=== PATIENT | female | born 1950 | race Caucasian/White ===

== ENCOUNTER 2018-01-28 09:54 | Inpatient (IN) ==
[2018-01-22 15:40] LABS: Appearance,Urine CLEAR; Bacteria,Urine 0 /hpf (0); Bilirubin,Urine NEG (NEG); Color,Urine YELLOW; Glucose,Urine (UA) NEGATIVE (NEG); Leukocyte Esterase,Urine 75 /uL (NEG); Mucus,Urine FEW /hpf (0); Protein,Urine NEG (NEG); Specific Gravity,Urine 1.015 (1.000-1.035); Urine Blood NEG mg/dL (<0.03); Urine RBC 1 /hpf (0-1); Urine Squamous Epithelial Cell 1 /hpf (0-4); Urine Transitional Epi Cells < 1 /hpf (0-2); Urine WBC 4 /hpf (0-4); Urobilinogen,Urine NEG (NEG)
[2018-01-22 17:15] LABS: Basophils # (Auto) 0 K/mcL (0.0-0.3); Basophils % (Auto) 0.4 % (0.0-2.0); Eosinophils # (Auto) 0.1 K/mcL (0.0-0.7); Eosinophils % (Auto) 1.1 % (0.0-7.0); Granulocytes % (Auto) 68.2 % (38.0-78.0); Lymphocytes # (Auto) 1.4 K/mcL (1.5-4.8); Lymphocytes % (Auto) 22.8 % (15.5-49.0); Mean Cell Volume 91.7 fL (80.0-100.0); Mean Corpuscular Hemoglobin 30.3 pg (26.0-34.0); Monocytes # (Auto) 0.5 K/mcL (0.1-0.9); Monocytes % (Auto) 7.5 % (1.0-12.0); Platelet Count 184 K/mcL (140-440); RBC 4.73 M/mcL (4.00-5.20); Red Cell Distribution Width 13.6 % (11.5-14.5)
[2018-01-22 18:26] LABS: Blood Urea Nitrogen 15 mg/dl (8-23)
[~2018-01-28 09:54] MED LIST: 0.9 % SODIUM CHLORIDE 9 ML, KETOROLAC 30 MG, ROPIVACAINE HCL/PF 49.5 ML, EPINEPHrine 0.... IJ SCH; CELECOXIB 200 MG CAPSULE PO SCH; PREGABALIN 75 MG CAPSULE PO SCH; ceFAZolin 1 GM VIAL IV SCH; oxyCODONE 10 MG TAB.ER.12H PO SCH
[2018-01-28] MEDS ORDERED: ONDANSETRON 4 MG/2 ML VIAL IV ONE (13:55)
[2018-01-28] MEDS ORDERED: LIDOCAINE HCL/PF 100 MG/5 ML SYRINGE IV ONE (13:55)
[2018-01-28] MEDS ORDERED: DEXAMETHASONE 10 MG/ML VIAL IV ONE (13:55)
[2018-01-28] MEDS ORDERED: PROPOFOL 200 MG/20 ML VIAL IV ONE (13:55)
[2018-01-28] MEDS ORDERED: PHENYLEPHRINE 10 MG/ML VIAL IV ONE (13:55)
[2018-01-28] MEDS ORDERED: GLYCOPYRROLATE 0.2 MG/ML VIAL IV ONE (13:55)
[2018-01-28] MEDS ORDERED: ePHEDrine 50 MG/ML AMPUL IV ONE (13:55)
[2018-01-28] MEDS ORDERED: KETAMINE 100 MG/ML ML IV ONE (13:55)
[2018-01-28] MEDS ORDERED: TRANEXAMIC ACID 1,000 MG/10 ML VIAL IV ONE (13:55)
[2018-01-28] MEDS ORDERED: MIDAZOLAM 2 MG/2 ML VIAL IV ONE (13:55)
[2018-01-28] MEDS ORDERED: METHOCARBAMOL 1,000 MG/10 ML VIAL IV PRN (14:33)
[2018-01-28] MEDS ORDERED: fentaNYL 100 MCG/2 ML VIAL IV PRN (14:33)
[2018-01-28] MEDS ORDERED: BENZOCAINE/MENTHOL 1 LOZENGE PO PRN ×2 (14:33→15:15)
[2018-01-28] MEDS ORDERED: NALOXONE HCL 0.4 MG/ML VIAL IV PRN (14:33)
[2018-01-28] MEDS ORDERED: ACETAMINOPHEN 1,000 MG/100 ML BOTTLE IV ONE (14:33)
[2018-01-28] MEDS ORDERED: ONDANSETRON 4 MG/2 ML VIAL IV PRN ×2 (14:33→15:15)
[2018-01-28] MEDS ORDERED: IPRATROPIUM/ALBUTEROL 3 ML AMPUL.NEB NEB PRN (14:33)
[2018-01-28] MEDS ORDERED: LACTATED RINGERS 250 ML IV PRN (14:33)
[2018-01-28] MEDS ORDERED: MEPERIDINE 25 MG/ML SYRINGE IV PRN (14:33)
[2018-01-28] MEDS ORDERED: FLUMAZENIL 0.1 MG/ML ML IV PRN (14:33)
[2018-01-28] MEDS ORDERED: GENTAMICIN SULFATE 800 MG/20 ML VIAL IR ONE (14:34)
[2018-01-28] MEDS ORDERED: LACTATED RINGERS 1,000 ML IV SCH (14:45)
[2018-01-28] MEDS ORDERED: TRANEXAMIC ACID 1,000 MG/10 ML VIAL IV SCH (15:15)
[2018-01-28] MEDS ORDERED: FLEETS ADULT ENEMA PR PRN (15:15)
[2018-01-28] MEDS ORDERED: POLYETHYLENE GLYCOL 3350 17 GM PACKET PO PRN (15:15)
[2018-01-28] MEDS ORDERED: ONDANSETRON ODT 4 MG TABLET SL PRN (15:15)
[2018-01-28] MEDS ORDERED: METHOCARBAMOL 750 MG TABLET PO PRN (15:15)
[2018-01-28] MEDS ORDERED: BISACODYL 10 MG SUPP.RECT PR PRN (15:15)
[2018-01-28] MEDS ORDERED: MAGNESIUM HYDROXIDE 30 ML ORAL.SUSP PO PRN (15:15)
--- NOTE | 2018-01-28 15:15 | Brief Operative Note ---
Date of procedure: 01/28/18 Pre-op diagnosis: right knee oa Post-op diagnosis: same Procedure: right total knee arthroplasty Grafts/Implants: Yes Anesthesia: GETA, spinal Findings: oa Complications: none Surgeon: Melquiades Hernandez Prenatal Genetic Counselor: Lynne Harris Estimated blood loss (cc): 150 Tourniquet Time (Minutes): 58 Specimens Removed/Pathology: none sent Condition: stable Disposition: PACU
--- NOTE | 2018-01-28 15:31 | Operative Note ---
DATE OF OPERATION: 01/28/2018 PREOPERATIVE DIAGNOSIS: Degenerative joint disease, right knee. POSTOPERATIVE DIAGNOSIS: Degenerative joint disease, right knee. PROCEDURE PERFORMED: Right total knee arthroplasty. SURGEON: Alena Hernandez M.D. ETCHER APPRENTICE PHOTOENGRAVING SURGEON: Lynne Harris PA-C. ANESTHESIA: Spinal with LMA assist. ESTIMATED BLOOD LOSS: 150 mL. COMPLICATIONS: None noted. SPECIMENS REMOVED: None. DRAINS: None. TOURNIQUET TIME: 58 minutes at 300 mmHg. IMPLANTS: DePuy Attune tibial base fixed bearing size 3, cemented; DePuy Attune femoral posterior stabilized size 4 right, cemented; DePuy Attune tibial insert fixed bearing posterior stabilized size 4, 10 mm AOX; DePuy Attune patella medialized dome 35 mm, cemented AOX; DePuy CMW2 bone cement 20 grams x4. INDICATIONS: The patient has had a long-standing history of worsening pain in the knee that has failed conservative treatment. Radiographs have confirmed advanced degenerative joint disease. After a long discussion about treatment options, the patient elected to proceed with a knee arthroplasty. The risks and benefits were discussed with the patient in detail including, but not limited to, the risks of anesthesia, problems with the heart or lungs related to anesthesia, infection, compromise or injury to the nerves and blood vessels, deep venous thrombosis, pulmonary embolism, pneumonia, continued pain after surgery, worsening pain or symptoms after surgery, swelling, loss of motion, instability, leg length discrepancy, and need for repeat surgery. DESCRIPTION OF PROCEDURE: The patient was seen in the pre-anesthesia waiting room where all questions were answered and the correct side and site were identified and marked. The patient was transferred to the operating room and administered the anesthetic and given pre-operative antibiotics. A time-out was then called. The extremity was prepped and draped, exsanguinated, and the tourniquet was inflated to 300 mmHg. A midline skin incision was then made with a standard medial parapatellar arthrotomy. Debridement of the menisci, ACL, and PCL was performed followed by balancing releases in the medial lateral plane. We then established intramedullary access to both the femur and tibia in a standard fashion. The femoral guide lenin was initially placed with the distal femoral guide, pinned into place, and the distal femoral cut was performed and checked with a flat plate. We then turned our attention to the tibia. The intramedullary guide was placed with the proximal tibial cutting block. The block was appropriately positioned off the affected side, varus and valgus was checked with the extra-medullary guide, and the block was pinned into place. The proximal tibial cut was performed and the tibia was prepared for the tibial implant with appropriate rotation. The tibia, femur, and posterior compartment were debrided of osteophytes, loose bodies, and meniscal fragments We then used the gap balancing technique to balance extension with the first two cuts and good balancing was obtained with a 10 millimeter gap block. We turned our attention back to the femur and used the referencing block and implant to size appropriately. Using the gap balancing technique for the flexion space we set our rotation of the femur off the tibial cut. Anesthesia gave the patient 1 gram of Tranexamic Acid via an intravenous route. We placed the 4 in 1 cutting block and made anterior, posterior, and chamfer cuts. Box plasty cuts were then made in a standard fashion for the posterior stabilized prosthesis. We then completed osteophyte release and posterior capsule release from the posterior compartment. Trials were placed and we chose the polyethylene insert thickness that provided the best stability in all planes. With the trials in place, we did a measured resection for a resurfacing patella. We sized the patella and placed the patella trial and performed a lateral facetectomy with the saw and rongeur. Good tracking was obtained. We removed all trials, irrigated and dried all cut surfaces. We cemented the components into place including tibia, femur and patella. We placed a trial liner and held the knee in full extension with the patella compressed while the cement cured. We then removed all excess cement and placed the final polyethylene tibiofemoral component. Irrigation with 3 liters of antibiotic saline was then performed using jet-lavage. We let the tourniquet down and coagulated bleeding vessels. We injected a 100 cubic centimeter volume including Ropivacaine 49.25 cubic centimeters at 5 milligrams per cubic centimeter, Ketorolac 30 milligrams, and Epinephrine 0.5 milligrams into 100 cubic centimeters volume of normal saline. We closed the retinaculum with #2 Stratafix and 0 Vicryl. We closed the subcutaneous tissue and skin in layers out to Dermabond on the skin. A sterile pressure dressing was applied. All needle and sponge counts were correct. The patient was transferred to the recovery room in stable condition. JAMES:jose alfredo Covarrubias: 01/28/2018 15:24:33 Job ID: [id number] Doc ID: [id number] Alena Hernandez MD
--- NOTE | 2018-01-28 16:16 | XRay Report ---
CLINICAL INFORMATION: Postsurgical follow-up TECHNIQUE: AP and crosstable lateral right knee COMPARISON: None. FINDINGS: Status post right total knee arthroplasty. Femoral and tibial complements are in anatomic positions. There is postsurgical intra-articular gas as well as a patellar joint effusion. IMPRESSION: Status post right total knee arthroplasty Interpreted and Authenticated by: Melquiades Abarca 01/28/18
[2018-01-28] MEDS: KETOROLAC 15 MG/ML VIAL IV SCH ×2 (17:42→23:06)
[2018-01-28] MEDS: ASPIRIN 325 MG ENTERIC COATED TABLET PO SCH (20:43)
[2018-01-28] MEDS: DOCUSATE SODIUM 100 MG CAPSULE PO SCH (20:43)
[2018-01-28] MEDS: HYDROcodone/APAP 10/325MG TABLET PO PRN (20:44)
[2018-01-28] MEDS: 0.9 % SODIUM CHLORIDE 10 ML SYRINGE IV SCH (20:44)
[2018-01-28] MEDS: ceFAZolin 1 GM VIAL IV SCH (20:45)
[2018-01-28] MEDS ORDERED: SENNOSIDES 1 TABLET PO SCH (21:00)
[2018-01-28] MEDS: 0.9 % SODIUM CHLORIDE 1,000 ML IV SCH (21:57)
[2018-01-29] MEDS: HYDROcodone/APAP 10/325MG TABLET PO PRN ×2 (04:49→09:26)
[2018-01-29] MEDS: ceFAZolin 1 GM VIAL IV SCH (05:17)
[2018-01-29] MEDS: 0.9 % SODIUM CHLORIDE 10 ML SYRINGE IV SCH (05:17)
[2018-01-29] MEDS: KETOROLAC 15 MG/ML VIAL IV SCH (05:27)
--- NOTE | 2018-01-29 07:02 | Discharge Summary ---
Providers - Providers Patient information: Note initiated : 01/29/18 at 7:00 am Service Date, if different from initiated Date: [] Patient: Diann Chandler 67 y/o F admitted on 01/28/18 for Right Total Knee Arthroplasty. Chief Complaint: [POD #1 s/p right TKA Patient doing well. Ambulating okay. Denies significant pain, numbness, tingling , chest pain, SOB, calf pain. No questions or concerns.] Discharge date: 01/29/18 Hospitalization Hospital course: Patient was brought into the OR yesterday for right TKA which went on without complication. She was admitted overnight for pain control and post surgical observation. She will d/c to home today or tomorrow morning and follow up in clinic in 10-14 days for post op visit. Discharge diagnosis: knee osteoarthritis Exam - Exam Incision healing: Yes Incision draining: No Incision red: No Incision swollen: No Incision inflamed: No Clean and dry: Yes Weight bearing status: as tolerated Range of motion: full ankle/foot. knee 0-5 deg ext/40 deg flex Ortho Discharge - TKA - Patient Instructions Diet: Regular Diet Activity: weight bearing as tolerated Total Knee Protocol: For Total Knee: Start ROM LUIS ENRIQUE with stationary bike or rocking chair. Work on gaining full extension of knee. Posterior dislocation precautions provided. Hip abductor strengthening and gait training instructions provided. Apply Cryocuff as instructed. Dressing Care: May shower in 2 days, Other (dermabond protocol) Additional Dressing Instructions: leave dermabond glue patch in place. May remove gauze and ISAMAR on day 2. Shower over patch, pat dry and replace gauze. - Follow Up Plan Follow Up Appointments: Lynne Harris PA-C [Physician Rf Microwave Engineer] - 02/12/18 11:00 am Disposition: Home, Self-Care Prognosis: Good Rehab Potential: Good I certify that the patient requires SNF services: No Overall status at discharge: patient is progressing back to baseline - Orders For Discharge Prescriptions: Aspirin [Ecotrin] 325 mg PO BID #60 tab.ec HYDROcodone/APAP 10/325MG [Tomball 10-325Mg] 1 - 2 tab PO Q4HP PRN #60 tab PRN Reason: Pain Level 3-6 Additional Discharge Orders: Physical Therapy at Discharge - TKA Location: None Selected Walker Location: None Selected Pending Studies Resuscitation Status Full Code Diet Regular Diet Start Sat 4 1516 Hydrocodone Bitart/Acetaminophen (Tomball 10/325mg) 0 tab PO Q4HP PRN PRN Reason: PAIN LEVEL 3-6 Last Admin: 01/29/18 04:49 Dose: 2 tab Admin: 01/28/18 20:44 Dose: 1 tab Aspirin (Ecotrin) 325 mg PO BID [facility] Last Admin: 01/28/18 20:43 Dose: 325 mg Docusate Sodium (Colace) 100 mg PO BID [facility] Last Admin: 01/28/18 20:43 Dose: 100 mg Sodium Chloride (Sodium Chloride 0.9%) 1,000 mls @ 125 mls/hr IV .Q8H [facility] Last Admin: 01/28/18 21:57 Dose: Admin: 01/28/18 21:57 Dose: Ketorolac Tromethamine (Toradol) 15 mg IV Q6 [facility] Stop: 01/30/18 12:01 Last Admin: 01/29/18 05:27 Dose: 15 mg Admin: 01/28/18 23:06 Dose: 15 mg Admin: 01/28/18 17:42 Dose: 15 mg Senna (Senokot) 2 tab PO HS [facility] Last Admin: 01/28/18 20:43 Dose: 2 tab Sodium Chloride (Saline Flush) 10 ml IV Q8 [facility] Last Admin: 01/29/18 05:17 Dose: 10 ml Admin: 01/28/18 20:44 Dose: Not Given Shift Summary 01/29/18 05:06 Shift Summary by Lexie Ford&Ox4. VSS on RA. Dressing to surgical site to right knee is CDI. Cryo-cuff in place intermittently. Used CPM for 2 hours; up to 50 degrees flexion; tolerated well. Medicated with Tomball 10/325mg x 2 for pain. Patient continues to retain urine. Straight cathed at 2051 for 625ml. Last PVR at 0441 was 493ml. Patient would like to avoid another catheterization if possible. Patient is going to attempt to void again in hopes of emptying bladder. Will update at bedside. Initialized on 01/29/18 05:06 - END OF NOTE
[2018-01-29] MEDS: ASPIRIN 325 MG ENTERIC COATED TABLET PO SCH (08:29)
[2018-01-29] MEDS: DOCUSATE SODIUM 100 MG CAPSULE PO SCH (08:29)
[2018-01-29] MEDS: 0.9 % SODIUM CHLORIDE 1,000 ML IV SCH (08:30)
[2018-01-29] MEDS ORDERED: LISINOPRIL 20 MG TABLET PO SCH (09:00)
--- NOTE | 2018-01-29 14:56 | Surgical Pathology Report ---
HISTOLOGY SPECIMEN MICROSCOPIC DIAGNOSIS SYNOVIUM, RIGHT KNEE SUPRAPATELLAR POUCH, SYNOVECTOMY: -- CHRONIC SYNOVITIS. (EBD:djf) MICROSCOPIC DESCRIPTION Histologic sections show synovium with lymphoplasmacytic chronic inflammation. (EBD:djf) PROCEDURAL IMPRESSION Right knee osteoarthritis. GROSS DESCRIPTION Received in formalin labeled with the patient information labeled synovial tissue suprapatellar pouch, are two fragments of pink-goyal to yellow-goyal fatty, fibrous tissue. The smaller fragment is 2.5 x 1.8 x 1 cm. The larger fragment is 7.1 x 3.1 x 1.4 cm. The fat is lobular in appearance and protrudes in bubble-like projections. Serially sectioned with inside outside sales representative sections submitted in two cassettes. (KGW:sln) Electronically Signed by: Page Levine M.D.
== END 2018-01-29 10:51 | disposition home or self-care (01) | DRG 470 ==
LOC: MEDSUR 09:54
PROVIDERS: ADMIT Orthopaedic Surgery Sports Medicine; ATTEND Orthopaedic Surgery Sports Medicine